=== PATIENT | female | born 1970 | race Caucasian/White ===

== ENCOUNTER 2018-05-07 08:45 | Emergency (ER) | payer OTHER ==
[~2018-05-07] VITALS: Ht 157.5 cm; Wt 76.2 kg
[~2018-05-07 08:45] MED LIST: ACET325; ACET500 PO; ALBU90OI INH; AZIT250 PO; CIPR500 PO; CRUTCH4 USE; CYCL10 PO; Estradiol1 MG PO; FAMO20 PO; GUAI120S1 PO; HYDACE5 PO; HYDR1TAB94 PO; IBUP200; IBUP800 PO; LAVAP17G PO; LEVFLO500 PO; LEVO750 PO; LISINOPRIL 40MG PO; LOVA40 PO; METR500 PO; NAPR220; OMEP20ER PO; ONDA4 PO; OXYACE5T PO; PENVK500 PO; PRED20 PO; PROC10 PO; PROM25 PO; Percocet 5-3251 EACH PO; Pyridium200 MG PO; RXOXYACE PO; RXPENVK250 PO; SENN187 PO; ZOLP10 PO; Zofran Odt4 MG SL; Zofran8 MG PO
[2018-05-07] MEDS ORDERED: Flovent 110 MCG12 GM INH (10:04)
[2018-05-07] MEDS ORDERED: LOSARTAN-HCTZ1 EACH PO (10:05)
[2018-05-07] MEDS ORDERED: ATOR40TA PO (10:05)
[2018-05-07] MEDS ORDERED: Permethrin60 GM TOP (10:06)
[2018-05-07] MEDS ORDERED: PRED20 PO (10:07)
[2018-05-07 10:34] LABS: BASOPHILS PERCENT AUTO 1 % (0-2); EOSINOPHILS ABSOLUTE AUTO 0.13 K/mm3 (0.00-0.68); EOSINOPHILS PERCENT AUTO 1 % (0-6); Hematocrit 41.2 % (33.0-51.0); Hemoglobin 13.5 g/dL (11.5-16.0); IMMATURE GRAN PERCENT AUTO 1 % (0-1); LYMPHOCYTES PERCENT AUTO 44 % (21-46); MONOCYTES ABSOLUTE AUTO 0.75 K/mm3 (0.16-1.47); MONOCYTES PERCENT AUTO 6 % (4-13); Mean Corpuscular HGB 32.5 pg (26.0-34.0); Mean Corpuscular HGB Conc 32.8 g/dL (31.5-36.5); Mean Corpuscular Volume 99 fL (80-100); Mean Platelet Volume 9.5 fL (9.1-12.4); NEUTROPHILS ABSOLUTE AUTO 6.29 K/mm3 (1.96-9.15); NEUTROPHILS PERCENT AUTO 48 % (41-73); Platelet Count 267 K/mm3 (150-400); RDW Coefficient Variation 14.4 % (11.7-14.2); RDW Standard Deviation 52.6 fL (35.1-46.3); Red Blood Cell Count 4.15 M/mm3 (3.80-5.20); White Blood Cell Count 13.17 K/mm3 (4.00-11.30)
[2018-05-07 11:01] LABS: Alanine Aminotransfer (ALT/SGP 137 U/L (12-78); Albumin, Blood 3.2 g/dL (3.4-5.0); Alk Phos 58 U/L (50-136); Anion Gap 7 mmol/L (6-16); Aspartate Aminotrans (AST/SGOT 78 U/L (12-37); Bilirubin, Total 0.3 mg/dL (0.1-1.0); Blood Urea Nitrogen 11 mg/dL (8-24); Bun/Creatinine Ratio 23.5 (12.0-20.0); CO2, Blood 24 mmol/L (21-32); Chloride, Blood 108 mmol/L (98-108); Creatinine, Blood 0.47 mg/dL (0.40-1.00); Globulin, Blood 3.1 g/dL (2.2-4.0); Glomerular Filtration Rate >60 (60-); Glucose, Blood 92 mg/dL (70-99); Potassium, Blood 4.2 mmol/L (3.5-5.5); Sodium, Blood 139 mmol/L (136-145); Total Protein, Blood 6.3 g/dL (6.4-8.2)
[2018-05-07 11:17] LABS: Influenza A Negative (NEGATIVE); Influenza B Negative (NEGATIVE)
[2018-05-07] MEDS ORDERED: Percocet 10-321 EACH PO (13:29)
== END 2018-05-07 13:55 | disposition home or self-care (01) ==
LOC: ER 08:45
PROVIDERS: Emergency Medicine; Internal Medicine
DX: M79.10 Myalgia, unspecified site (principal); Z79.899 Other long term (current) drug therapy; F17.200 Nicotine dependence, unspecified, uncomplicated
CPT/HCPCS: 36415; 80053; 85025; 85651; 87804; 96361; 96374; 96375; 99283-25; J1170; J1885; J2405; J3010; J7030

== ENCOUNTER → 2018-08-30 | Outpatient (CLI) | payer OTHER ==
[~2018-08-30] MED LIST changes: +ATOR40TA PO; +Flovent 110 MCG12 GM INH; +LOSARTAN-HCTZ1 EACH PO; +Percocet 10-321 EACH PO; +Permethrin60 GM TOP
== END | disposition home or self-care (01) ==
LOC: LAB EV 17:27 → LAB SHORT 17:27
DX: R30.0 Dysuria (principal)
CPT/HCPCS: 87077; 87086; 87186

== ENCOUNTER → 2019-03-05 | Outpatient (CLI) | payer OTHER | END | disposition home or self-care (01) | LOC: LAB SHORT 10:45 → LAB EV 10:45 | DX: N39.0 Urinary tract infection, site not specified (principal) | CPT/HCPCS: 87077; 87086; 87186 ==

== ENCOUNTER 2019-12-05 04:43 | Emergency (ER) | payer OTHER ==
[~2019-12-05] VITALS: Ht 157.5 cm; Wt 73.9 kg
[2019-12-05] MEDS ORDERED: ANORO ELLIPTA1 EAC1 IH (05:02)
[2019-12-05] MEDS ORDERED: TYLENOL #3 (05:03)
[2019-12-05 05:26] LABS: Source, Urine Clean Catch
[2019-12-05 05:28] LABS: Appearance, Urine Clear (Clear); Bilirubin, Urine Neg (Neg); Blood, Urine 1+ (Neg); Color, Urine Yellow (P-Yellow); Glucose Qualitative, Urine Neg (Neg); Ketones, Urine Neg (Neg); Leukocyte Esterase, Urine Neg (Neg); Nitrite, Urine Neg (Neg); Protein, Urine Neg (Neg); Urobilinogen, Urine NORM (Normal)
[2019-12-05 05:59] LABS: Red Blood Cells, Urine 0-2 /hpf (0-2)
[2019-12-05 06:00] LABS: Bacteria Mod /hpf; Squamous Epithelial Cells Mod /hpf (Few)
[2019-12-05] MEDS ORDERED: OXYACE7.5T PO (06:26)
[2019-12-05] MEDS ORDERED: Q-Tussin100 MG/5 M PO (06:26)
[2019-12-05] MEDS ORDERED: NITR100CA PO (06:26)
[2019-12-10] MEDS ORDERED: Promod946 ML (09:02)
[2019-12-10] MEDS ORDERED: IRON18 MG PO (09:02)
[2019-12-10] MEDS ORDERED: ASCO500 PO (09:02)
[2019-12-10] MEDS ORDERED: Vitamin K100 MCG (09:02)
[2019-12-10] MEDS ORDERED: BENZ100A PO (09:05)
[2019-12-10] MEDS ORDERED: Percocet 7.5-31 EACH PO (09:05)
[2019-12-10] MEDS ORDERED: CEFP200 PO (09:42)
[2019-12-10] MEDS ORDERED: Zithromax250 MG PO (09:42)
== END 2019-12-05 06:47 | disposition home or self-care (01) ==
LOC: ER 04:43
PROVIDERS: Emergency Medicine
DX: S22.42XA Multiple fractures of ribs, left side, initial encounter for closed fracture (principal); R30.0 Dysuria; I10 Essential (primary) hypertension; E78.00 Pure hypercholesterolemia, unspecified; J44.9 Chronic obstructive pulmonary disease, unspecified; Z79.899 Other long term (current) drug therapy; Z87.442 Personal history of urinary calculi; X50.1XXA Overexertion from prolonged static or awkward postures, initial encounter; Y93.89 Activity, other specified
CPT/HCPCS: 71046; 81001; 87077; 87086; 87186; 99283-25

== ENCOUNTER 2020-07-23 23:08 | Inpatient (IN) | payer OTHER ==
[~2020-07-23] VITALS: Ht 162.6 cm; Wt 72.3 kg
[~2020-07-23 23:08] MED LIST changes: +ANORO ELLIPTA1 EAC1 IH; +ASCO500 PO; +BENZ100A PO; +CEFP200 PO; +IRON18 MG PO; +NITR100CA PO; +OXYACE7.5T PO; +Percocet 7.5-31 EACH PO; +Promod946 ML; +Q-Tussin100 MG/5 M PO; +TYLENOL #3; +Vitamin K100 MCG; +Zithromax250 MG PO
[2020-07-23 23:36] LABS: BASOPHILS ABSOLUTE AUTO 0.17 K/mm3 (0.00-0.23); BASOPHILS PERCENT AUTO 1 % (0-2); EOSINOPHILS ABSOLUTE AUTO 0.28 K/mm3 (0.00-0.68); EOSINOPHILS PERCENT AUTO 2 % (0-6); Hematocrit 36.7 % (33.0-51.0); Hemoglobin 12.4 g/dL (11.5-16.0); Mean Corpuscular HGB 32.3 pg (26.0-34.0); Mean Corpuscular HGB Conc 33.8 g/dL (31.5-36.5); Mean Corpuscular Volume 96 fL (80-100); Mean Platelet Volume 9.5 fL (9.1-12.4); Platelet Count 346 K/mm3 (150-400); RDW Coefficient Variation 14.1 % (11.7-14.2); RDW Standard Deviation 49.1 fL (35.1-46.3); Red Blood Cell Count 3.84 M/mm3 (3.80-5.20); White Blood Cell Count 15.79 K/mm3 (4.00-11.30)
[2020-07-23 23:38] LABS: IMMATURE GRAN ABSOLUTE AUTO 0.17 K/mm3 (0.00-0.10); IMMATURE GRAN PERCENT AUTO 1 % (0-1); LYMPHOCYTES ABSOLUTE AUTO 6.27 K/mm3 (0.84-5.20); LYMPHOCYTES PERCENT AUTO 40 % (21-46); MONOCYTES ABSOLUTE AUTO 0.59 K/mm3 (0.16-1.47); MONOCYTES PERCENT AUTO 4 % (4-13); NEUTROPHILS ABSOLUTE AUTO 8.31 K/mm3 (1.96-9.15); NEUTROPHILS PERCENT AUTO 53 % (41-73)
[2020-07-23 23:47] LABS: Alanine Aminotransfer (ALT/SGP 108 U/L (12-78); Albumin, Blood 3.7 g/dL (3.4-5.0); Albumin/Globulin Ratio 0.9 (0.8-1.8); Alk Phos 119 U/L (50-136); Anion Gap 8 mmol/L (6-16); Aspartate Aminotrans (AST/SGOT 99 U/L (12-37); Bilirubin, Total 0.4 mg/dL (0.1-1.0); Blood Urea Nitrogen 20 mg/dL (8-24); Bun/Creatinine Ratio 24.5 (12.0-20.0); CO2, Blood 29 mmol/L (21-32); Calcium, Blood 8.9 mg/dL (8.5-10.1); Chloride, Blood 105 mmol/L (98-108); Creatinine, Blood 0.82 mg/dL (0.40-1.00); Glomerular Filtration Rate >60 (60-); Glucose, Blood 145 mg/dL (70-99); Potassium, Blood 2.9 mmol/L (3.5-5.5); Sodium, Blood 142 mmol/L (136-145); Total Protein, Blood 7.7 g/dL (6.4-8.2)
[2020-07-23 23:57] LABS: Ethanol (Alcohol), Blood, Med 323 mg/dL
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
--- NOTE | 2020-07-24 15:33 | NUR ---
DENIZ FROM [employer] FITTED BACK BRACE TO PT PT TO WEAR WHEN OOB. NOW RESTING BACK IN BED. CALL LIGHT IN REACH.
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
[2020-07-25 03:17] LABS: BASOPHILS ABSOLUTE AUTO 0.06 K/mm3 (0.00-0.23); BASOPHILS PERCENT AUTO 1 % (0-2); EOSINOPHILS ABSOLUTE AUTO 0.05 K/mm3 (0.00-0.68); EOSINOPHILS PERCENT AUTO 0 % (0-6); Hematocrit 32.8 % (33.0-51.0); Hemoglobin 11.1 g/dL (11.5-16.0); IMMATURE GRAN ABSOLUTE AUTO 0.05 K/mm3 (0.00-0.10); IMMATURE GRAN PERCENT AUTO 0 % (0-1); LYMPHOCYTES ABSOLUTE AUTO 2.46 K/mm3 (0.84-5.20); LYMPHOCYTES PERCENT AUTO 19 % (21-46); MONOCYTES ABSOLUTE AUTO 0.71 K/mm3 (0.16-1.47); MONOCYTES PERCENT AUTO 5 % (4-13); Mean Corpuscular HGB 32.4 pg (26.0-34.0); Mean Corpuscular HGB Conc 33.8 g/dL (31.5-36.5); Mean Corpuscular Volume 96 fL (80-100); Mean Platelet Volume 9.2 fL (9.1-12.4); NEUTROPHILS ABSOLUTE AUTO 9.88 K/mm3 (1.96-9.15); NEUTROPHILS PERCENT AUTO 75 % (41-73); Platelet Count 236 K/mm3 (150-400); RDW Coefficient Variation 14.2 % (11.7-14.2); Red Blood Cell Count 3.43 M/mm3 (3.80-5.20); White Blood Cell Count 13.21 K/mm3 (4.00-11.30)
[2020-07-25 03:43] LABS: Anion Gap 6 mmol/L (6-16); Blood Urea Nitrogen 11 mg/dL (8-24); Bun/Creatinine Ratio 16.7 (12.0-20.0); CO2, Blood 26 mmol/L (21-32); Calcium, Blood 8.2 mg/dL (8.5-10.1); Chloride, Blood 107 mmol/L (98-108); Creatinine, Blood 0.66 mg/dL (0.40-1.00); Glomerular Filtration Rate >60 (60-); Glucose, Blood 115 mg/dL (70-99); Potassium, Blood 3.6 mmol/L (3.5-5.5); Sodium, Blood 139 mmol/L (136-145)
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
[2020-07-25 12:19] LABS: Appearance, Urine Hazy (Clear); Bilirubin, Urine Neg (Neg); Blood, Urine 2+ (Neg); Color, Urine Yellow (P-Yellow); Glucose Qualitative, Urine Neg (Neg); Ketones, Urine Neg (Neg); Leukocyte Esterase, Urine 1+ (Neg); Nitrite, Urine Pos (Neg); Protein, Urine 1+ (Neg); Urobilinogen, Urine NORM (Normal); pH, Urine 6.5 (5.0-8.0)
[2020-07-25 13:17] LABS: Bacteria Many /hpf; Squamous Epithelial Cells Mod /hpf (Few); White Blood Cells, Urine 25-50 /hpf (0-5)
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
--- NOTE | 2020-07-25 20:43 | NUR ---
PT TO IMAGING FOR SCAN.
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
[2020-07-26 04:55] LABS: BASOPHILS ABSOLUTE AUTO 0.05 K/mm3 (0.00-0.23); BASOPHILS PERCENT AUTO 1 % (0-2); EOSINOPHILS ABSOLUTE AUTO 0.15 K/mm3 (0.00-0.68); EOSINOPHILS PERCENT AUTO 2 % (0-6); Hematocrit 33.1 % (33.0-51.0); IMMATURE GRAN ABSOLUTE AUTO 0.05 K/mm3 (0.00-0.10); IMMATURE GRAN PERCENT AUTO 1 % (0-1); LYMPHOCYTES ABSOLUTE AUTO 2.16 K/mm3 (0.84-5.20); LYMPHOCYTES PERCENT AUTO 22 % (21-46); MONOCYTES ABSOLUTE AUTO 0.62 K/mm3 (0.16-1.47); MONOCYTES PERCENT AUTO 6 % (4-13); Mean Corpuscular HGB 32.3 pg (26.0-34.0); Mean Corpuscular HGB Conc 33.2 g/dL (31.5-36.5); Mean Corpuscular Volume 97 fL (80-100); Mean Platelet Volume 9.4 fL (9.1-12.4); NEUTROPHILS ABSOLUTE AUTO 6.98 K/mm3 (1.96-9.15); NEUTROPHILS PERCENT AUTO 70 % (41-73); Platelet Count 204 K/mm3 (150-400); RDW Coefficient Variation 14.2 % (11.7-14.2); RDW Standard Deviation 50.3 fL (35.1-46.3); Red Blood Cell Count 3.41 M/mm3 (3.80-5.20); White Blood Cell Count 10.01 K/mm3 (4.00-11.30)
[2020-07-26 05:32] LABS: Anion Gap 6 mmol/L (6-16); Blood Urea Nitrogen 8 mg/dL (8-24); Bun/Creatinine Ratio 10.6 (12.0-20.0); CO2, Blood 26 mmol/L (21-32); Calcium, Blood 8.7 mg/dL (8.5-10.1); Chloride, Blood 104 mmol/L (98-108); Creatinine, Blood 0.76 mg/dL (0.40-1.00); Glomerular Filtration Rate >60 (60-); Glucose, Blood 111 mg/dL (70-99); Potassium, Blood 3.5 mmol/L (3.5-5.5); Sodium, Blood 136 mmol/L (136-145)
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
[2020-07-27 04:08] LABS: BASOPHILS ABSOLUTE AUTO 0.05 K/mm3 (0.00-0.23); BASOPHILS PERCENT AUTO 1 % (0-2); EOSINOPHILS ABSOLUTE AUTO 0.29 K/mm3 (0.00-0.68); EOSINOPHILS PERCENT AUTO 4 % (0-6); Hemoglobin 10.6 g/dL (11.5-16.0); IMMATURE GRAN ABSOLUTE AUTO 0.03 K/mm3 (0.00-0.10); IMMATURE GRAN PERCENT AUTO 0 % (0-1); LYMPHOCYTES ABSOLUTE AUTO 2.44 K/mm3 (0.84-5.20); LYMPHOCYTES PERCENT AUTO 29 % (21-46); MONOCYTES ABSOLUTE AUTO 0.72 K/mm3 (0.16-1.47); MONOCYTES PERCENT AUTO 9 % (4-13); Mean Corpuscular HGB 32.2 pg (26.0-34.0); Mean Corpuscular HGB Conc 33.1 g/dL (31.5-36.5); Mean Corpuscular Volume 97 fL (80-100); Mean Platelet Volume 9.8 fL (9.1-12.4); NEUTROPHILS ABSOLUTE AUTO 4.82 K/mm3 (1.96-9.15); NEUTROPHILS PERCENT AUTO 58 % (41-73); Platelet Count 218 K/mm3 (150-400); RDW Coefficient Variation 14.3 % (11.7-14.2); RDW Standard Deviation 50.6 fL (35.1-46.3); Red Blood Cell Count 3.29 M/mm3 (3.80-5.20); White Blood Cell Count 8.35 K/mm3 (4.00-11.30)
[2020-07-27] MEDS ORDERED: Percocet 5-3251 EACH PO (11:00)
[2020-07-27] MEDS ORDERED: AMOCLA875 PO (11:00)
[2020-07-27] MEDS ORDERED: SULTRIDS PO (11:43)
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
== END 2020-07-27 12:02 | disposition home or self-care (01) | DRG 552 ==
LOC: ER 23:08 → ERHOLD 23:09 → SURS 07-24 09:22 → ERHOLD 07-24 09:22 → SURS 07-24 11:26
PROVIDERS: Emergency Medicine; Internal Medicine; Surgery; ADMIT Internal Medicine
PROC: 0HQ3XZZ Repair Left Ear Skin, External Approach (ICD-10-PCS; principal; 2020-07-23)
DX: S32.020A Wedge compression fracture of second lumbar vertebra, initial encounter for closed fracture (principal); S02.32XA Fracture of orbital floor, left side, initial encounter for closed fracture; S02.40DA Maxillary fracture, left side, initial encounter for closed fracture; N39.0 Urinary tract infection, site not specified; S02.2XXA Fracture of nasal bones, initial encounter for closed fracture; E87.6 Hypokalemia; B96.89 Other specified bacterial agents as the cause of diseases classified elsewhere; F17.210 Nicotine dependence, cigarettes, uncomplicated; I10 Essential (primary) hypertension; E78.5 Hyperlipidemia, unspecified; J44.9 Chronic obstructive pulmonary disease, unspecified; S01.312A Laceration without foreign body of left ear, initial encounter; N63.0 Unspecified lump in unspecified breast; F10.229 Alcohol dependence with intoxication, unspecified; Y90.8 Blood alcohol level of 240 mg/100 ml or more; R09.02 Hypoxemia; T50.905A Adverse effect of unspecified drugs, medicaments and biological substances, initial encounter; Y92.239 Unspecified place in hospital as the place of occurrence of the external cause; V48.5XXA Car driver injured in noncollision transport accident in traffic accident, initial encounter; Z79.899 Other long term (current) drug therapy; Z79.2 Long term (current) use of antibiotics; Z79.890 Hormone replacement therapy; Z79.891 Long term (current) use of opiate analgesic; Z79.51 Long term (current) use of inhaled steroids
CPT/HCPCS: 12013; 36415; 70450; 70486; 71045; 71046; 71260; 72100; 72125; 74177; 80048; 80053; 81001; 83690; 84484; 85025; 87040; 87077; 87086; 87186; 90471; 90714; 93005; 93010; 94640; 94760; 96365; 96366; 96368; 96375; 96376; 97116; 97162; 97530; 99285-25; A9270; G0480; J0295; J1170; J2060; J2250; J2405; J3010; J3411; J3475; J3480; J7042; J7050; J7120; L0160; Q9967

== ENCOUNTER → 2020-10-28 | Outpatient (CLI) | payer OTHER ==
[~2020-10-28] MED LIST changes: +AMOCLA875 PO; +SULTRIDS PO
== END | disposition home or self-care (01) ==
LOC: LAB 17:48 → LAB SHORT 17:48
DX: N30.01 Acute cystitis with hematuria (principal)
CPT/HCPCS: 87077; 87086; 87186

== ENCOUNTER 2021-02-20 07:21 | Day surgery (SDC) | payer OTHER ==
[~2021-02-20] VITALS: Ht 157.5 cm; Wt 77.5 kg
== END 2021-02-20 13:40 | disposition home or self-care (01) ==
LOC: ORSCSDS 07:21
PROVIDERS: Surgery
PROC: 0JB70ZZ Excision of Back Subcutaneous Tissue and Fascia, Open Approach (ICD-10-PCS; principal; 2021-02-20 08:30)
PROC: 0JB60ZZ Excision of Chest Subcutaneous Tissue and Fascia, Open Approach (ICD-10-PCS; principal; 2021-02-20 08:30)
PROC: 0JBD0ZZ Excision of Right Upper Arm Subcutaneous Tissue and Fascia, Open Approach (ICD-10-PCS; principal; 2021-02-20 08:30)
DX: D17.1 Benign lipomatous neoplasm of skin and subcutaneous tissue of trunk (principal); R22.2 Localized swelling, mass and lump, trunk; I10 Essential (primary) hypertension; Z87.891 Personal history of nicotine dependence; Z79.899 Other long term (current) drug therapy
CPT/HCPCS: 88304; J0171; J0690; J1100; J2250; J2405; J2704; J2710; J3010; J7120

== ENCOUNTER → 2021-07-03 | Outpatient (CLI) | payer OTHER | LOC: LAB SHORT 14:51 | DX: R30.0 Dysuria (principal); R30.9 Painful micturition, unspecified | CPT/HCPCS: 87086 ==

== ENCOUNTER → 2021-08-12 | Outpatient (CLI) | payer OTHER ==
[2021-08-12 17:40] LABS: Source, Urine Voided
[2021-08-12 18:57] LABS: Appearance, Urine Clear (Clear); Bilirubin, Urine Neg (Neg); Blood, Urine Neg (Neg); Color, Urine Yellow (P-Yellow); Glucose Qualitative, Urine Neg (Neg); Ketones, Urine Neg (Neg); Leukocyte Esterase, Urine Neg (Neg); Nitrite, Urine Neg (Neg); Protein, Urine 1+ (Neg); Urobilinogen, Urine 1+ (Normal)
== END | disposition home or self-care (01) ==
LOC: RAD SHORT 15:48
PROVIDERS: Nurse Practitioner Family
DX: R10.2 Pelvic and perineal pain (principal); G89.29 Other chronic pain; R31.29 Other microscopic hematuria; R39.15 Urgency of urination
CPT/HCPCS: 88108

== ENCOUNTER 2022-03-07 12:35 | Emergency (ER) | payer OTHER ==
[~2022-03-07] VITALS: Ht 160 cm; Wt 74.8 kg
[2022-03-07 13:19] LABS: BASOPHILS ABSOLUTE AUTO 0.12 K/mm3 (0.00-0.23); BASOPHILS PERCENT AUTO 2 % (0-2); EOSINOPHILS ABSOLUTE AUTO 0.03 K/mm3 (0.00-0.68); EOSINOPHILS PERCENT AUTO 0 % (0-6); Hematocrit 44.2 % (33.0-51.0); Hemoglobin 15.6 g/dL (11.5-16.0); IMMATURE GRAN ABSOLUTE AUTO 0.01 K/mm3 (0.00-0.10); IMMATURE GRAN PERCENT AUTO 0 % (0-1); LYMPHOCYTES ABSOLUTE AUTO 3.03 K/mm3 (0.84-5.20); LYMPHOCYTES PERCENT AUTO 41 % (21-46); MONOCYTES ABSOLUTE AUTO 0.45 K/mm3 (0.16-1.47); MONOCYTES PERCENT AUTO 6 % (4-13); Mean Corpuscular HGB 32.6 pg (26.0-34.0); Mean Corpuscular HGB Conc 35.3 g/dL (31.5-36.5); Mean Corpuscular Volume 93 fL (80-100); Mean Platelet Volume 9.5 fL (9.1-12.4); NEUTROPHILS ABSOLUTE AUTO 3.72 K/mm3 (1.96-9.15); NEUTROPHILS PERCENT AUTO 51 % (41-73); Platelet Count 257 K/mm3 (150-400); RDW Coefficient Variation 13.3 % (11.7-14.2); RDW Standard Deviation 46.1 fL (35.1-46.3); Red Blood Cell Count 4.78 M/mm3 (3.80-5.20); White Blood Cell Count 7.36 K/mm3 (4.00-11.30)
[2022-03-07 14:04] LABS: Albumin, Blood 3.8 g/dL (3.4-5.0); Albumin/Globulin Ratio 1.1 (0.8-1.8); Bilirubin, Total 0.8 mg/dL (0.1-1.0); Bun/Creatinine Ratio 42.8 (12.0-20.0); Creatinine, Blood 0.47 mg/dL (0.40-1.00); Globulin, Blood 3.6 g/dL (2.2-4.0); Potassium, Blood 3.6 mmol/L (3.5-5.5); Total Protein, Blood 7.4 g/dL (6.4-8.2)
== END 2022-03-07 15:37 | disposition home or self-care (01) ==
LOC: ER 12:35
PROVIDERS: Physician Assistant
DX: R07.89 Other chest pain (principal); I10 Essential (primary) hypertension; J44.9 Chronic obstructive pulmonary disease, unspecified; E78.5 Hyperlipidemia, unspecified; F17.210 Nicotine dependence, cigarettes, uncomplicated; Z79.899 Other long term (current) drug therapy
CPT/HCPCS: 36415; 71045; 80053; 83880; 84484; 85025; 85379; 93005; 93010; J1885